=== PATIENT | male | born 1955 | race Caucasian/White ===

== ENCOUNTER → 2016-04-30 | Outpatient (CLI) | payer MEDICARE, OTHER ==
[2016-04-30 15:51] LABS: BILIRUBIN,URINE Negative (Negative); CLARITY,URINE Clear; COLOR,URINE Yellow; GLUCOSE, URINE (UA) 2+ (Negative); LEUKOCYTE ESTERASE ,URINE Negative (Negative); UROBILINOGEN,URINE 0.2 mg/dL (0.2-1.0)
[2016-04-30 16:07] LABS: ANION GAP 13.3 MEQ/L (3-15)
[2016-04-30 16:14] LABS: URINE CENTRIFUGED VOLUME 12 mL
[2016-04-30 16:20] LABS: RBC,URINE None Seen /HPF
== END ==
LOC: LAB 15:23
PROVIDERS: ATTEND Family Medicine
DX: E10.65 Type 1 diabetes mellitus with hyperglycemia (principal); N39.0 Urinary tract infection, site not specified; R79.89 Other specified abnormal findings of blood chemistry
CPT/HCPCS: 36415; 80048; 81003; 81015; 82043; 83036